=== PATIENT | female | born 1980 | race Caucasian/White ===

== ENCOUNTER 2025-05-24 14:31 | Outpatient (CLI) | payer OTHER, SELFPAY ==
[2025-05-27 04:56] LABS: HPV Source Cervix
[2025-05-30 15:39] LABS: Pap Test Digital Imaging Done; Pap Test Reviewed by Pathologi Done
== END 2025-05-24 14:32 | disposition home or self-care (01) ==
PROVIDERS: Visit Provider Physician Assistant
DX: Z12.4 Encounter for screening for malignant neoplasm of cervix (principal); Z11.51 Encounter for screening for human papillomavirus (HPV)
CPT/HCPCS: 87624; 87625; 88141; 88142; 88175

== ENCOUNTER 2025-05-31 08:20 | Outpatient (CLI) | payer OTHER, SELFPAY | END 2025-05-31 08:21 | disposition home or self-care (01) | LOC: NFLDREF 06-05 12:12 | PROVIDERS: Visit Provider Physician Assistant | DX: Z13.6 Encounter for screening for cardiovascular disorders (principal); Z13.1 Encounter for screening for diabetes mellitus; Z13.29 Encounter for screening for other suspected endocrine disorder; Z13.9 Encounter for screening, unspecified | CPT/HCPCS: 80061; 82947; 84443 ==